=== PATIENT | female | born 1995 ===

== ENCOUNTER 2017-04-14 18:04 | Emergency (ER) | payer OTHER ==
[2017-04-14] MEDS ORDERED: Lidocaine 1%* 5 ML VIAL ONE (21:53)
--- NOTE | 2017-04-14 22:46 | ED ---
Laceration/Wound HPI - HPI Summary HPI Summary: 21 female presents via EMS to ED with complaints of a right thumb laceration the the finger pad that she sustained while trying to open a can around 5pm today. Patient states she experienced a lot of bleeding however it is now under control. Denies any numbness/tingling. Does have some pain at laceration. No FB or other complaints. Is able to move her thumb. No other injuries. Tetanus was updated in 2015 per patient. No other complaints at his time. No PMHx. Denies feeling dizzy or lightheaded. - History of Current Complaint Stated Complaint: RT THUMB LAC Time Seen by Provider: 04/14/17 19:36 Hx Obtained From: Patient Mechanism of Injury: Sharp/Blunt Trauma - open top of can Onset/Duration: Sudden Onset, Still Present Aggravating: Movement Alleviating: Compression Timing: Constant Onset Severity: Mild Current Severity: Mild Pain Intensity: 5 Pain Scale Used: 0-10 Numeric Associated Signs & Symptoms: Negative Related Hx: Dominant Hand (Right) - Allergy/Home Medications Allergies/Adverse Reactions: Allergies Allergy/AdvReac Type Severity Reaction Status Date / Time No Known Allergies Allergy Verified 12/19/15 12:38 PMH/Surg Hx/FS Hx/Imm Hx Endocrine/Hematology History: Reports: Hx Anemia Denies: Hx Anticoagulant Therapy, Hx Diabetes Cardiovascular History: Denies: Hx Hypertension, Hx Pacemaker/ICD History: Denies: Hx Renal Disease Musculoskeletal History: Reports: Hx Fibromyalgia Sensory History: Denies: Hx Hearing Aid Neurological History: Reports: Other Neuro Impairments/Disorders - HX OF FIBROMYALGIA Psychiatric History: Denies: Hx Panic Disorder - Surgical History Surgery Procedure, Year, and Place: GALLBLADDER 09/06 - Immunization History Date of Tetanus Vaccine: 2014 Immunizations Up to Date: Yes Infectious Disease History: No Infectious Disease History: Denies: Traveled Outside the [place] in Last 30 Days - Family History Known Family History: Positive: None - Social History Alcohol Use: None Substance Use Type: Reports: None Smoking Status (MU): Never Smoked Tobacco Review of Systems Constitutional: Negative Cardiovascular: Negative Respiratory: Negative Musculoskeletal: Negative Positive: Other - laceration right thumb finger pad Neurological: Negative All Other Systems Reviewed And Are Negative: Yes Physical Exam Triage Information Reviewed: Yes Vital Signs On Initial Exam: Initial Vitals Temp Pulse Resp BP Pulse Ox 98.3 F 88 16 140/99 98 04/14/17 18:33 08/22/17 18:33 04/14/17 18:33 04/14/17 18:33 04/14/17 18:33 elevated BP noted, patient was in pain and anxious due to injury Vital Signs Reviewed: Yes Appearance: Positive: Well-Appearing, No Pain Distress, Well-Nourished Skin: Positive: Warm, Skin Color Reflects Adequate Perfusion, Dry, Other - 1.5cm laceration linear noted at tip of right anterior thumb, finger pad. minimal bleeding. .5cm deep, SQ involvement. no muscle or tendon involvement. No FB. clean cut. rest of skin exam normal besides a small abrasion noted to right tip of index.. Negative: Cold, Cyanosis @, Pale, Erythema @ Head/Face: Positive: Normal Head/Face Inspection Eyes: Positive: Conjunctiva Clear ENT: Positive: Hearing grossly normal Neck: Positive: Supple, Nontender Respiratory/Lung Sounds: Positive: Clear to Auscultation, Breath Sounds Present. Negative: Rales, Rhonchi, Wheezes Cardiovascular: Positive: Normal, RRR, Pulses are Symmetrical in both Upper and Lower Extremities - 2+ radial b/l. Negative: Murmur, Rub Musculoskeletal: Positive: Normal, Strength/ROM Intact, Pain @ - over laceration of right tip of thumb, Other - no crepitus step off, obvious deformity other than laceration. no concern for bony involvement FROM of right thumb. rest of MSK exam normal.. Negative: Limited @, Interruption @, Abnormal @, Tatiana Sign Left, Tatiana Sign Right, Edema Left Neurological: Positive: Normal, Sensory/Motor Intact - sensation intact and normal, cap refill > 2 seconds, Alert, Oriented to Person Place, Time, Reflexes Intact, NV Bundle Intact Distally, Normal Gait Psychiatric: Positive: Affect/Mood Appropriate Procedures - Laceration/Wound Repair 1 Location: Other - right anterior thumb, finger pad Description: Linear Anesthesia: Local, 1.0%, Lido Length, Depth and Shape: 1.5cm linear, .5cm length with some SQ tissue involvment Betadine Prep?: Yes Irrigated w/ Saline (ccs): 300 Laceration/Wound Explored: clean, no foreign body removed Closure: Single Layer Suture Type: Prolene Number of Sutures: 5 Layer Closure?: No Sterile Dressing Applied?: Yes - patient tolerate procedure well. sterile procedure used. no complications Diagnostics - Vital Signs Vital Signs Temp Pulse Resp BP Pulse Ox 04/14/17 18:33 98.3 F 88 16 140/99 98 - Laboratory Lab Statement: Any lab studies that have been ordered have been reviewed, and results considered in the medical decision making process. Laceration Repair Course/Dx - Course Course Of Treatment: no need for imaging due to MARIELOS and PE findings. Tetanus was updated 2 years ago. Laceration was sutured with 5 stitches using sterile procedure without complication. Patient tolerated procedure well. Dressed. Keep clean and dry. No antbiotics at this time. Aware of worsening signs and symptoms to watch out for. Follow up and have stitches removed in 7-10 days. Ibuprofen for pain, cool compresses and elevate. - Differential Dx Differental Diagnoses: Abrasion, Avulsion, Hematoma, Laceration - Clinical Impression Provider Diagnoses: Laceration of right thumb Discharge - Discharge Plan Condition: Stable Disposition: HOME Patient Education Materials: Laceration (ED), Care For Your Stitches (ED) Referrals: Mayi Ornelas DO [Primary Care Provider] - Additional Instructions: Keep wound clean and dry. Do not get wet for 24-48 hours. After this time you may gently clean the wound and rinse under water. Keep covered if desired. You may also apply triple antibiotic ointment ( neosporin or bacitracin) after 48 hours. Do not scrub at stitches, be careful. If you develop any worsening signs or symptoms such as infection (redness, warmth, discharge, swelling) please seek medical attention promptly. you may need antibiotics if infection occurs. Follow up and have stitches removed in 7-10 days.
[2017-04-14 22:50] VITALS: BP 132/68
== END 2017-04-14 22:52 | disposition home or self-care (01) ==
LOC: ED 18:04
DX: S61.011A Laceration without foreign body of right thumb without damage to nail, initial encounter (principal); X58.XXXA Exposure to other specified factors, initial encounter; Y93.9 Activity, unspecified; Y92.9 Unspecified place or not applicable
CPT/HCPCS: 12001; 99282